=== PATIENT | male | born 2000 | race Caucasian/White ===

== ENCOUNTER 2025-04-11 16:13 | Emergency (ER) | payer BC, SELFPAY ==
[2025-04-11 16:27] VITALS: BP 116/68
--- NOTE | 2025-04-11 19:14 | ED.GENMED ---
History of Present Illness
General
Chief Complaint: Musculo-Skeletal Complaint
Time Seen by Provider: 04/11/25 18:03
History of Present Illness
History of Present Illness:
25-year-old male presents to the emergency department for evaluation of midline neck pain for the past 4 days. He states that while swimming (admits to being intoxicated) he swam headfirst into a wall and developed immediate neck pain. He since
that time he has been able to ambulate and be active without difficulty but notes that he has significant neck pain. No upper extremity weakness or paresthesias
Past History
Past History
ED Past Medical History: None
ED Past Surgical History: None
Social History
Tobacco: Non-smoker
Alcohol: None
Drug: None
Personal: Single
Living: with family
Employment: Student
Review of Systems
Review of Systems
Allergies reviewed?: Yes
All Other Systems: ROS reviewed and negative except as documented in HPI and ROS
Phy Exam
Physical Exam
Physical Exam:
GEN: Well appearing, NAD, WDWN
HEENT: Oral mucosa moist, no scleral icterus
Cardiac: Regular rate
Lung: No respiratory distress, no tachypnea
MSK: No gross deformity or injuries. No tenderness to palpation midline cervical spine and range of motion is normal in all rosenbaum however patient elicits complaint of midline pain with rotation
Skin: Good color, no pallor or jaundice, no rashes
Neuro: AO x3, moves all extremities freely, bilateral upper extremity strength is intact in all rosenbaum and symmetric
Psych: Calm, cooperative
Course
Orders/Labs/Results
Orders:
Orders
04/11/25 16:27
CR Cervical Spine 2 or 3 Vw Urgent
Reason For Exam: neck pain after head injury
04/11/25 19:11
CT Cervical Spine W/o Iv Contr Urgent
Comment:
Reason For Exam: midline neck pain
Vital Signs
Initial and Last Documented VS:
Initial Vital Signs
Temp Pulse Resp BP Pulse Ox
98.6 F 69 16 116/68 100
04/11/25 16:27 04/11/25 16:27 04/11/25 16:27 04/11/25 16:27 04/11/25 16:27
Last Documented Vital Signs
Temp Pulse Resp BP Pulse Ox
98.6 F 68 18 115/68 99
04/11/25 16:27 04/11/25 22:09 04/11/25 22:09 04/11/25 22:09 04/11/25 22:09
MDM/Problems Addressed
MDM/Problems Addressed:
C-spine CT obtained due to the patient's reported midline pain with an axial load type injury, imaging was reassuring against fracture. He has no neurologic symptoms that would warrant follow-up MRI. Discussed supportive care and return parameters
*Pulse Oximetry
SaO2: 100
Oxygen Mode of Delivery: Room air
Patient hypoxic: no
*Critical Care Note
Total Time (30-74mins, 75-104mins- exclusive of procedures): Not Applicable
ED Attending Note
-
Portions of this chart may have been created with voice recognition software.� Occasional wrong word or��sound alike� substitutions may have occurred due to the inherent limitations of voice recognition software.
Discharge Plan
Departure
Patient Disposition: Home (Routine Discharge)
Date of Disposition: 04/11/25
Time of Disposition: 21:32
Patient with high blood pressure during this ER visit?: No
Discharge Problem:
Acute neck sprain
Instructions: Cervical Sprain ED
Prescriptions:
No Action
acetaminophen-codeine 10 ML solution
10 ml PO Q4HPRN PRN (Reason: pain) Qty: 125 0RF
Referrals:
NONE,* [Family Provider, Internal Medicine]
Interventions
Interventions:
*Nursing Disposition Last Done: 04/11/25 22:10
ED-Musculoskeletal Assessment Last Done: 04/11/25 18:54
Discharge Date and Time
Discharge Date/Time: 04/11/25 22:11
Print Language: GERMAN
[2025-04-11 22:09] VITALS: BP 115/68
== END 2025-04-11 22:11 | disposition home or self-care (01) ==
LOC: EMR 16:13
PROVIDERS: EMERGENCY PHYSICIAN Emergency Medicine
DX: S13.9XXA Sprain of joints and ligaments of unspecified parts of neck, initial encounter (principal); X58.XXXA Exposure to other specified factors, initial encounter
CPT/HCPCS: 99284; 72040; 72125

== ENCOUNTER → 2025-05-05 12:01 | Outpatient (REF) | payer BC, SELFPAY ==
[2025-05-05 12:42] LABS: Urine Character Clear (Clear)
[2025-05-05 12:48] LABS: Hematocrit 44.6 % (39.0-52.0); Hemoglobin 15.1 g/dL (13.0-18.0); Mean Corp Hgb Conc. 33.9 g/dL (33.0-37.0); Mean Corpuscular Volume 83.2 fL (80.0-94.0); Nucleated Red Blood Cells % 0 % (-); Platelet Count 246 10^3/uL (130-400); Red Cell Dist. Width 12.1 % (11.5-14.5)
[2025-05-05 12:58] LABS: Urine Red Blood Cell 0-2 /HPF (0-2); Urine Squamous Cell 0-2 /LPF (Few); Urine White Cell 0-2 /HPF (0-5)
[2025-05-05 14:24] LABS: ALT (SGPT) 21 U/L (0-50); AST (SGOT) 21 U/L (17-59); Albumin 5.1 g/dl (3.5-5.0); Alkaline Phosphatase 73 U/L (38-126); Blood Urea Nitrogen 11 mg/dl (9-20); Calcium 10.3 mg/dl (8.4-10.2); Carbon Dioxide 26 mmol/L (22-30); Chloride 106 mmol/L (98-107); Glucose 86 mg/dl (70-99); Potassium 4.8 mmol/L (3.5-5.1); Sodium 140 mmol/L (135-145); Total Protein 8.0 g/dl (6.3-8.2); eGFR > 60.00
== END ==
LOC: REG 12:01
PROVIDERS: ATTENDING PHYSICIAN Nurse Practitioner Family
DX: R00.2 Palpitations (principal); F41.9 Anxiety disorder, unspecified; Z86.79 Personal history of other diseases of the circulatory system; F43.9 Reaction to severe stress, unspecified; Z86.59 Personal history of other mental and behavioral disorders
CPT/HCPCS: 36415; 80053; 81003; 81015; 84443; 85025; 87086; 93005